=== PATIENT | female | born 1960 | race Caucasian/White ===

== ENCOUNTER 2019-05-18 00:28 | Day surgery (SDC) | payer OTHER, SELFPAY ==
[2019-05-12 13:39] VITALS: BMI 34.7
[2019-05-18] MEDS: LACTATED RINGERS 1,000 ML 150 ML IV CONT (07:01)
[2019-05-18 07:11] VITALS: BP 140/85; PULSE 93; RESP 18; TEMP 37.2; O2SAT 95; BMI 37.3
--- NOTE | 2019-05-18 07:33 | P.PNAN_ITS ---
Anes - Initial Pre Proc Eval Procedure: Operation Date: 05/18/19 08:00 Proposed Procedures p Screening Colonoscopy - Rito Sood MD Date/Time: 05/18/19 07:33 Surgeon: Rito Sood MD Pre Op Diagnosis: Neoplasm Screening Patient Data Age: 59 Gender: F Height: 5 ft 6 in Weight: 105 kg Last Vital Signs Temp 98.9 F 05/18/19 07:11 Pulse 93 05/18/19 07:11 Resp 18 05/18/19 07:11 BP 140/85 05/18/19 07:11 Pulse Ox 95 05/18/19 07:11 Allergies Allergy/AdvReac Type Severity Reaction Status Date / Time clarithromycin Allergy Unknown Nausea Verified 05/18/19 07:09 levofloxacin Allergy Unknown Nausea Verified 05/18/19 07:09 Home Medications Medication Instructions Recorded Confirmed Type valsartan-hydrochlorothiazide 1 tablet PO DAILY 05/12/19 05/18/19 History Patient hx anesthesia problems: none Family hx anesthesia problems: none [facility] Past Medical History Medical History (Updated 05/18/19 @ 07:27 by Lucien Duran MD) Hypertension Social History Social History Smoking status: Never smoker Alcohol intake: current Anes - Eval Final PreProcedure Day of Procedure 05/18/19 07:33 Patient weight: obese Heart: regular rate and rhythm Lungs: clear to auscultation Airway: Mallampati scale class II Neurological: alert and oriented Last oral intake: >/= 8 hours ASA classification: II Emergent: no Anesthetic plan: proceed Anesthesia type and monitoring: general GIVS and standard monitoring Informed Consent: The patient's anesthetic plan and its attendant risks and benefits were discussed with the patient/family/POA. Questions were solicited and answers provided to the satisfaction of the patient/family/POA.
--- NOTE | 2019-05-18 08:04 | P.HP_ITS ---
History of Present Illness History of Present Illness Consent: Risks, benefits, and alternatives have been discussed and questions answered. Patient agrees to proceed with procedure. Chief complaint: Neoplasm Screening Narrative: Nataly Cleary is a 59 year old female here for screening colonoscopy, never had one. Review of Systems Constitutional: Constitutional: Denies headache(s) and Denies weakness Eyes: Eyes: Denies blurry vision ENT: Reports Normal hearing present, Denies headache(s) and Denies neck pain Cardiovascular: Cardiovascular: Denies chest pain and Denies dyspnea Respiratory: Respiratory: Denies dyspnea Gastrointestinal: Gastrointestinal: Reports no additional gastrointestinal complaints Genitourinary: Genitourinary: Denies dysuria Musculoskeletal: Musculoskeletal: Denies neck pain Integumentary/Breasts: Skin/Breast: Denies dry skin Neurologic: Reports Normal hearing present, Denies headache(s) and Denies weak ness Psychiatric: Psychiatric: Denies anxiety Endocrine: Endocrine: Denies change in body appearance Hematologic/Lymphatic: Hematologic/Lymphatic: Denies easy bleeding Allergic/Immunologic: Allergic/Immunologic: Denies urticaria PMFSH Past Medical History Medical History (Updated 05/18/19 @ 08:05 by Rito Sood MD) Colon cancer screening Hypertension Social History Social History Smoking status: Never smoker Alcohol intake: current Meds Home Medications and Allergies Home Medications Medication Instructions Recorded Confirmed Type valsartan-hydrochlorothiazide 1 tablet PO DAILY 05/12/19 05/18/19 History Allergies Allergy/AdvReac Type Severity Reaction Status Date / Time clarithromycin Allergy Unknown Nausea Verified 05/18/19 07:09 levofloxacin Allergy Unknown Nausea Verified 05/18/19 07:09 Vital Signs Vital Signs - 24 hr 05/18/19 07:11 Temperature 98.9 F Pulse Rate 93 Respiratory Rate 18 Blood Pressure 140/85 Pulse Oximetry 95 Exam Const: General: comfortable and no acute distress HENMT: General nose exam: Normal nares present Eyes: General: appearance normal, both eyes and all related structures Neck: Neck: no JVD Resp: Auscultation: clear to auscultation bilaterally Cardio: Rate: regular rate Rhythm: regular rhythm GI: Inspection: non-distended GI Palp: Yes Soft to palpation Skin: General skin exam: normal color Neuro: General: gait normal Speech: normal speech Extrem: General: normal to inspection Psych: Mental Status: mental status grossly normal Assessment and Plan Assessment and plan (1) Colon cancer screening: Code(s): Z12.11 - Encounter for screening for malignant neoplasm of colon Status: Acute Assessment and Plan: will proceed with colonoscopy
[2019-05-18 08:33] VITALS: BP 112/65; PULSE 83; RESP 18; O2SAT 98
[2019-05-18 08:43] VITALS: BP 107/71; PULSE 89; RESP 20; O2SAT 99
[2019-05-18 08:54] VITALS: BP 120/84; PULSE 83; RESP 24; O2SAT 97
== END 2019-05-18 09:02 | disposition home or self-care (01) ==
PROVIDERS: PCP Family Medicine Sports Medicine; Visit Provider Internal Medicine Gastroenterology
PROC: 0DJD8ZZ Inspection of Lower Intestinal Tract, Via Natural or Artificial Opening Endoscopic (ICD-10-PCS; CPT 45378; principal; 2019-05-18 08:00)
DX: Z12.11 Encounter for screening for malignant neoplasm of colon (principal); I10 Essential (primary) hypertension; E66.9 Obesity, unspecified; Z68.37 Body mass index [BMI] 37.0-37.9, adult
CPT/HCPCS: 45378; J2704; J7120

== ENCOUNTER 2021-09-28 10:56 | Emergency (ER) | payer OTHER, SELFPAY ==
[2021-09-28] VITALS (18 sets, daily range): BP systolic 111–147; BP diastolic 67–89; PULSE 87–107; RESP 16–18; TEMP 36.6–36.8; O2SAT 94–97
--- NOTE | 2021-09-28 11:33 | ED.GENADULT ---
HPI - General Adult General Chief complaint: Upper Respiratory Infection Stated complaint: COVID + Time Seen by Provider: 09/28/21 11:01 History of Present Illness HPI narrative: 61-year-old female presented to the emergency department for evaluation of COVID symptoms. Patient states that on Friday she began developing sore throat. Patient states he did test positive for COVID yesterday. Patient is vaccinated against COVID. Patient has no prior history of a COVID infection. Patient's primary complaint is sinus pressure. Related Data Home Medications Medication Instructions Recorded Confirmed valsartan 160 1 tablet PO DAILY 05/12/19 05/18/19 mg-hydrochlorothiazide 12.5 mg tablet Allergies Allergy/AdvReac Type Severity Reaction Status Date / Time clarithromycin Allergy Unknown Nausea Verified 09/28/21 12:03 levofloxacin Allergy Unknown Nausea Verified 09/28/21 12:03 Review of Systems Review of Systems: CONSTITUTIONAL: Generalized fatigue EYES: Denies visual changes, redness, or discharge. ENT: Sinus pressure, see HPI CARDIOVASCULAR: Denies chest pain, palpitations, or edema. RESPIRATORY: Denies cough or dyspnea. GASTROINTESTINAL: Denies abdominal pain, nausea, vomiting, or diarrhea. GENITOURINARY: Denies dysuria or hematuria. SKIN: Denies rash or itching. MUSCULOSKELETAL: Denies back pain, joint pain, or myalgia. NEUROLOGIC: Denies headache, numbness, or weakness. [facility] Past Medical History Medical History (Updated 09/28/21 @ 18:23 by Jerry Duggan MD) Colon cancer screening Hypertension Social History Social History Smoking status: Never smoker Alcohol intake: current Exam Narrative: APPEARANCE: Well appearing, no pain, no distress, well-nourished. HEAD: normocephalic, atraumatic. Maxillary sinus tenderness to palpation EYES: PERRLA/EOMI, conjunctivae clear. NOSE: Normal no drainage EARS:TMS clear with good light reflex. THROAT: Pharynx clear, no exudate. NECK: Supple. No adenopathy, no masses. RESPIRATORY: Airway patent, respirations nonlabored. Clear to auscultation bilaterally, no rales, rhonchi, wheezing. CARDIOVASCULAR: Regular rate and rhythm without murmurs rubs or gallops. ABDOMINAL: Soft, nontender, nondistended, normal bowel sounds MUSCULOSKELETAL: Moves all extremities. Strength/ROM intact, No edema, No calf tenderness. NEURO: Alert. Cranial nerves II through XII intact. Grossly intact SKIN: Warm, dry. Normal Color Course Course Emergency Course: Patient's heart rate was improved with rehydration. Patient's vital signs were within normal limits. Vital Signs Vital signs: Vital Signs Temperature 98.3 F 09/28/21 10:57 Pulse Rate 107 H 09/28/21 10:57 Respiratory Rate 16 09/28/21 10:57 Blood Pressure 146/68 H 09/28/21 10:57 Pulse Oximetry 97 09/28/21 10:57 Oxygen Delivery Room Air 09/28/21 10:57 Temperature 98 F 09/28/21 13:15 Pulse Rate 87 09/28/21 13:15 Respiratory Rate 18 09/28/21 13:15 Blood Pressure 116/89 09/28/21 13:15 Pulse Oximetry 97 09/28/21 13:15 Oxygen Delivery Room Air 09/28/21 12:00 Medical Decision Making Vital Signs Vital Signs: Vital Signs Temperature 98.3 F 09/28/21 10:57 Pulse Rate 107 H 09/28/21 10:57 Respiratory Rate 16 09/28/21 10:57 Blood Pressure 146/68 H 09/28/21 10:57 Pulse Oximetry 97 09/28/21 10:57 Oxygen Delivery Room Air 09/28/21 10:57 Temperature 98 F 09/28/21 13:15 Pulse Rate 87 09/28/21 13:15 Respiratory Rate 18 09/28/21 13:15 Blood Pressure 116/89 09/28/21 13:15 Pulse Oximetry 97 09/28/21 13:15 Oxygen Delivery Room Air 09/28/21 12:00 Lab Data Result diagrams: 09/28/21 11:46 09/28/21 11:46 Labs: Lab Results 09/28/21 09/28/21 Range/Units 11:46 11:46 WBC 7.1 (4.5-10.0) K/mm3 RBC 4.39 (4.2-5.4) M/mm3 Hgb 13.1 (12.0-15.0) g/dL Hct 38.3 (37.0-47.0) % MCV 87.2 (80-100) fl
[2021-09-28 11:50] LABS: Basophils Percent Auto 0.3 % (0.2-1.2); Eosinophils Absolute Auto 0.1 K/mm3 (0-0.3); Eosinophils Percent Auto 1.4 % (0-4.4); Hematocrit 38.3 % (37.0-47.0); Hemoglobin 13.1 g/dL (12.0-15.0); Immature Granulocyte Absolute 0.02 K/mm3 (0.00-0.031); Immature Granulocyte Percent A 0.3 % (0-0.5); Lymphocytes Absolute Auto 0.87 K/mm3 (0.9-3.2); Lymphocytes Percent Auto 12.3 % (18.3-44.2); Mean Corpuscular HGB Conc 34.2 g/dl (32-36); Mean Corpuscular Hemoglobin 29.8 pg (26-34); Mean Corpuscular Volume 87.2 fl (80-100); Mean Platelet Volume 10.7 fl (7.4-10.4); Monocytes Absolute Auto 0.6 K/mm3 (0.1-0.6); Monocytes Percent Auto 8.6 % (2.6-8.5); Neutrophils Absolute Auto 5.5 K/mm3 (1.3-6.7); Neutrophils Percent Auto 77.1 % (45.5-73.1); Platelet Count Result 198 k/mm3 (150-375); Red Blood Count 4.39 M/mm3 (4.2-5.4); Red Cell Distribution Width 12.7 % (11.5-14.5); White Blood Count 7.1 K/mm3 (4.5-10.0)
[2021-09-28 12:01] LABS: Alanine Aminotransferase 16 U/L (6-35); Albumin Level 4.1 g/dL (3.5-5.1); Alkaline Phosphatase 73 U/L (38-126); Anion Gap 3 mmol/L (8-16); Aspartate Amino Transferase 20 U/L (14-36); Bilirubin,Total 0.7 mg/dL (0.2-1.3); Blood Urea Nitrogen 14 mg/dL (7-17); Calcium 8.6 mg/dL (8.4-10.2); Carbon Dioxide 29 mmol/L (22-30); Chloride 104 mmol/L (98-107); Estimated CRCL calculation 60 ml/min; Estimated Glomerular Filt Rate 57; Glucose 131 mg/dL (65-110); Potassium 3.8 mmol/L (3.4-5.0); Sodium 136 mmol/L (137-145)
[2021-09-28] MEDS: SODIUM CHLORIDE 0.9% IV 1,000 ML 999 ML IV CONT (12:02)
[2021-09-28] MEDS: KETOROLAC 15 MG/ML VIAL (*BKC) IV PUSH (12:03)
== END 2021-09-28 13:15 | disposition home or self-care (01) ==
PROVIDERS: Emergency Provider Emergency Medicine; PCP Family Medicine Sports Medicine
DX: U07.1 COVID-19 (principal); J32.9 Chronic sinusitis, unspecified; I10 Essential (primary) hypertension
CPT/HCPCS: 36415; 80053; 85025; 96361; 96374; 99284; J1885; J7030

== ENCOUNTER 2023-05-26 08:46 | Outpatient (CLI) | payer BC, SELFPAY ==
--- NOTE | ~2023-05-26 | DEXA_ITS ---
Bone Density Report Name: URIAH ACEVEDO Age: 63 Sex: Female Ethnicity: White Date of : 1960 Indication: postmenopausal; screening for osteoporosis; Referring Provider: ROBB NAJERA Study: Bone densitometry was performed. Exam Date: May 26, 2023 Accession number: [id number] Bone Density: Region BMD T-score Z-score Classification AP Spine (L1-L4) 1.076 0.3 1.8 Normal Femoral Neck (Left) 0.876 0.2 1.6 Normal Total Hip (Left) 1.049 0.9 1.9 Normal Femoral Neck (Right) 0.871 0.2 1.5 Normal Total Hip (Right) 1.027 0.7 1.7 Normal Total Hip Mean 1.038 0.8 1.8 Normal World Health Organization criteria for BMD impression classify patients as: Normal (T-score at or above -1.0), Osteopenia (T-score between -1.0 and -2.5), or Osteoporosis (T-score at or below -2.5). 10-year Fracture Risk: FRAX not reported because: All T-scores for Spine Total, Hip Total, Femoral Neck at or above -1.0 Previous Exams: Region Exam Age BMD T-score BMD Change BMD Change Date g/cm2 vs Baseline vs Previous AP Spine(L1-L4) 05/26/2023 63 1.076 0.3 -0.092 -0.092 01/19/2007 46 1.167 1.1 Total Hip(Left) 05/26/2023 63 1.049 0.9 -0.009 -0.009 01/19/2007 46 1.058 0.9 Total Hip(Right) 05/26/2023 63 1.027 0.7 -0.049 -0.049 01/19/2007 46 1.076 1.1 *Denotes significance at 95% confidence level, LSC for AP Spine = 0.022 g/cm2, LSC for Total Hip = 0.027 g/cm2 Clinical Information Provided by Patient: Has used the following medications: Vitamin D Patient maximum height was 66.0 Menopause Age: 52 Drinks caffeinated beverages Onset of menses at age 16 Number of children 3 Impression: The patient has normal bone mass. No significant bone loss was observed. Discussion: BONE DENSITY IS ABOVE THE MINIMUM DESIRABLE LEVEL AT ALL SKELETAL SITES TESTED. This patient?s bone mineral density is above the minimum desirable level (T-score -1.0 or better) at all sites measured. The patient should follow a healthful lifestyle (good nutrition with adequate calcium and vitamin D, and appropriate weight-bearing exercise). Follow-Up: Consider repeating this study in 5 years or sooner if there is some new clinical indication. Reported by: SUNIL on 05/26/2023 9:08:00 AM. Reviewed, dictated and finalized at location [facility]
== END 2023-05-26 08:47 ==
PROVIDERS: PCP Family Medicine; Visit Provider Obstetrics & Gynecology Gynecology
DX: Z13.820 Encounter for screening for osteoporosis (principal); Z78.0 Asymptomatic menopausal state
CPT/HCPCS: 77080

== ENCOUNTER 2024-07-15 15:01 | Outpatient (CLI) | payer BC, SELFPAY ==
--- NOTE | 2024-07-15 | ECG_ITS ---
Test Date: 2024-07-15 15:51:04 Measurements Intervals [place] Rate: 86 P: 58 TX: 163 QRS: 14 QRSD: 98 T: 22 QT: 385 QTc: 461 Interpretive Statements SINUS RHYTHM No previous ECG available for comparison Electronically Signed On 07-16-2024 18:59:51 CDT by Corazon Lopez
--- OUTSIDE RECORDS SUMMARY | 2024-07-15 15:33 | XMS_ITS | Clinical Summary ---
Author Organization [facility] [address] [place] [id number] Care Team Providers Care Eyeglass Maker Name Role Phone Sky Hummel MD Primary Care Provider [phone] Allergies No known active allergies Medications ezetimibe (ZETIA) 10 mg tablet 07/02/2024 Active meclizine (ANTIVERT) 25 mg tablet TAKE 1 TABLET BY MOUTH 4 TIMES A DAY NEEDED FOR 10 DAYS 03/31/2024 Active valsartan-hydroC HLOROthiazide (DIOVAN-HCT) 160-12.5 mg per tablet 07/02/2024 Active Active Problems No known active problems Encounters Date Type Department Care Team Description 07/03/2024 6:00 PM CDT Office Visit [facility] Medical Group [facility] Care at [address] [id number] Maribel Woodard NP Impacted cerumen of right ear (Primary Dx); Vertigo from Last 3 Months Social History Tobacco Use Types Packs/Day Years Used Date Smoking Tobacco: Never Assessed Comments No Sex and Gender Information Value Date Recorded Sex Assigned at Not on file 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 Gender Identity Not on file Sexual Orientation Not on file Obstetrics History Para Term AB IAB SAB Ectopic Multiple Livin g Live Births 3 Date Outcome GA Total Labor Labor/2nd/3rd Weight Sex Type Anes PTL Billie A1 A5 Name Clin Last Filed Vital Signs Vital Sign Reading Time Taken Comments Blood Pressure 138/82 07/03/2024 5:57 PM CDT Pulse 85 07/03/2024 5:57 PM CDT Temperature 36.9 C (98.4 F) 07/03/2024 5:57 PM CDT Respiratory Rate 20 07/03/2024 5:57 PM CDT Oxygen Saturation 98% 07/03/2024 5:57 PM CDT Inhaled Oxygen Concentration - - Weight 104.8 kg (231 lb) 07/03/2024 5:57 PM CDT Height - - Body Mass Index - - Plan of Treatment Health Maintenance Due Date Last Done Comments Cervical Cancer Screening 1960 Colon Cancer Screening-Colonoscopy 1960 Depression Screening 1960 Hepatitis C Screening 1960 DTaP/Tdap/Td Vaccine (1 - Tdap) 1973 Regular Well Visit/Exam 18-64 1980 Zoster Vaccine (1 of 2) 2012 Covid-19 Vaccine ( - season) 2023 01/19/2021, 05/16/2020, 04/18/2020 Breast Cancer Screening-Mammogram 09/07/2024 09/08/2023, 07/01/2022, 05/22/2021, Additional history exists Influenza Vaccine (Season Ended) 2024 12/22/2020, 12/25/2019, 01/01/2019, Additional history exists Hepatitis B Screening Completed 03/24/2017 , 10/01/2016, 08/30/2016 Pneumococcal vaccine <65 Aged Out No longer eligible based on patient's age to complete this topic Procedures Procedure Name Priority Date/Time Associated Diagnosis Comments MA REMOVAL IMPACTED CERUMEN IRRIGATION/LVG UNILAT Routine 07/03/2024 6:00 PM CDT Impacted cerumen of right ear MA REMOVAL IMPACTED CERUMEN INSTRUMENTATION UNILAT Routine 07/03/2024 6:00 PM CDT Impacted cerumen of right ear SCREENING MAMMOGRAM BILATERAL W JOHNSON Schedule Routine, Read Routine (OP Routine) 09/08/2023 4:25 PM CDT Screening mammogram, encounter for from Last 3 Months or Most Recently Relevant to Health Maintenance Results * MA REMOVAL IMPACTED CERUMEN INSTRUMENTATION UNILAT, MA REMOVAL IMPACTED CERUMEN IRRIGATION/LVG UNILAT (07/03/2024 6:00 PM CDT) Narrative Maribel Woodard NP - 07/03/2024 6:00 PM CDT Maribel Woodard NP 07/03/2024 6:18 PM Ear Cerumen Removal Performed by: Maribel Woodard NP Authorized by: Maribel Woodard NP Consent Given by: Patient Verbal consent obtained: Yes Location: R ear R ear cerumen impacted?: Yes R ear method of removal: Irrigation and instrumentation R ear instrumentation: Curette R ear magnification: Otoscope Inspection: TM intact Hearing quality: Improved Patient tolerance: Patient tolerated the procedure well with no immediate complications Eardrum and canal on right side are within normal limits after cerumen removed Maribel Woodard NP IN CLINIC/BEDSIDE ORDERABLES F inal Result * Screening Mammogram Bilateral W Johnson (09/08/2023 4:25 PM CDT) Anatomical Region Laterality Modality Breast Bilateral Mammography Impressions 09/08/2023 5:53 PM CDT BI-RADS ATLAS category (overall): 2 - Benign There is no mammographic evidence of malignancy. A 1 year screening mammogram is recommended. The patient has been or will be contacted. We recommend annual screening mammography for women at average risk of breast cancer beginning at age 40, based on guidelines of the [place] (ACR Practice Parameter for the Performance of Screening and Diagnostic Mammography) and [place]. For women with and elevated risk of breast cancer, please refer to the ACR Practice Parameter for specific screening recommendations. The patient will be entered into a reminder system with a target due date of 1 year for her next screening exam. Narrative 09/08/2023 5:53 PM CDT Screening Mammogram Bilateral W Johnson: 09/08/23 The study was acquired using full field digital technology and interpreted from soft copy. 2D digital mammographic views, as well as 3D digital tomosynthesis were performed in the CC and MLO projections. CLINICAL: Screening mammogram, encounter for. No relevant medical history has been documented for this patient. No known family history of breast cancer. COMPARISONS: 07/01/2022 Screening Mammogram Bilateral W Johnson 05/22/2021 Screening Mammogram Bilateral W Johnson 02/23/2019 Screening Mammogram Bilateral W Johnson 01/29/2018 Screening Mammogram 2D Bilateral BREAST TISSUE: The breasts are heterogeneously dense, which may obscure small masses. FINDINGS: There are stable benign scattered calcifications in both breasts. There is no new suspicious finding in either breast on mammogram. us Self Screening Mammogram IMG MAMMO PROCEDURES Fi nal Result from Last 3 Months or Most Recently Relevant to Health Maintenance Insurance [employer] ID Care Teams Eyeglass Maker Relationship Specialty Start Date End Date Sky Hummel MD [address] [place] [id number] PCP - General Family Medicine 08/29/23
--- OUTSIDE RECORDS SUMMARY | 2024-07-15 15:33 | XMS_ITS | Clinical Summary ---
Author Organization [facility] [employer] Address [address] [place] [address] Care Team Providers Care Phys Therapist Name Role Phone Cristhian Griffith MD Primary Care Provider [phone] Source Comments [facility] [facility],non-owned Affiliates and Associated Physician Practices is amultiple site organization consisting of ambulatory clinics and hospital sitesin [place], [place], [place] and [place]. This disclosure is being madepursuant to the Care Everywhere program and may not contain all information available regarding this patient. Last updated 17.[facility] [facility] Allergies Active Allergy Reactions Criticality Noted Date Comments Levofloxacin 08/09/2016 Medications * Be aware that medications may not be up to date on this document. Alwaysverify current medications with the patient. No known medications Social History Tobacco Use Types Packs/Day Years Used Date Smoking Tobacco: Never Comments Unknown Sex and Gender Information Value Date Recorded Sex Assigned at Not on file Legal Sex Female 9:30 AM CDT Gender Identity Not on file Sexual Orientation Not on file Last Filed Vital Signs Vital Sign Reading Time Taken Comments Blood Pressure 110/64 03/22/2020 4:08 PM DIGITAL ARCHIVIST Pulse 92 08/09/2016 10:20 AM CDT Temperature 36.7 C (98 F) 08/09/2016 10:20 AM CDT Respiratory Rate 16 08/09/2016 10:20 AM CDT Oxygen Saturation 97% 08/09/2016 10:20 AM CDT Inhaled Oxygen Concentration - - Weight 85.3 kg (188 lb) 08/09/2016 10:20 AM CDT Height 167.6 cm (5' 6 ) 08/09/2016 10:20 AM CDT Body Mass Index 30.34 08/09/2016 10:20 AM CDT Plan of Treatment Health Maintenance Due Date Last Done Comments COLOGUARD (AGES 45-75) - COL ON CA SCREENING 1960 COLON MONITORING 1962 COLONOSCOPY - COLON CA SCREENING 1962 CT COLONOGRAPHY - COLON CA SCREENING 1960 Colorectal Cancer Screening 1960 FIT - COLON CA SCREENING 1962 FLEX SIG - COLON CA SCREENING 1962 LIPID TESTING 1962 HIV SCREENING 1977 HEPATITIS C SCREENING 03/22/1980 DTAP/TDAP/TD VACCINES (1 - Tdap) 1981 PNEUMOCOCCAL VACCINE 50+ (1 of 1 - PCV) 2012 ZOSTER VACCINE (1 of 2) 2012 MAMMOGRAM 02/23/2021 02/23/2019 COVID-19 VACCINE ( - 2023-2 5 season) 2023 DEPRESSION SCREENING 03/17/2024 INFLUENZA VACCINE (Season Ended) 2024 Respiratory Syncytial Virus (RSV) Vaccine Pt: or over 60 yrs (1 - 1-dose 75+ series) 2037 HEPATITIS B VACCINE Aged Out No longe r eligible based on patient's age to complete this topic HIB VACCINE Aged Out No longer eligi ble based on patient's age to complete this topic HPV VACCINE Aged Out No longer eligi ble based on patient's age to complete this topic MENINGOCOCCAL (Group B) VACC INE SHARED DECISION-MAKING Aged Out No longer eligibl e based on patient's age to complete this topic MENINGOCOCCAL GROUPS A/C/Y/W VACCINE Aged Out No longer eligible b ased on patient's age to complete this topic Insurance [employer] Care Teams Phys Therapist Relationship Specialty Start Date End Date Cristhian Griffith MD [address] [facility] [place] [address] PCP - General Family Medicine 08/09/16
--- OUTSIDE RECORDS SUMMARY | 2024-07-15 15:33 | XMS_ITS | Referral Summary ---
Author Organization [facility] [address] [place] [id number] Care Team Providers Care Principal Quality Engineer Name Role Phone Sky Hummel MD Primary Care Provider [phone] Encounters Date Type Department Care Team Description 07/03/2024 6:00 PM CDT Office Visit [facility] Care at [address] [phone] Maribel Woodard NP Impacted cerumen of right ear (Primary Dx); Vertigo from Last 3 Months Allergies No known active allergies Medications ezetimibe (ZETIA) 10 mg tablet 07/02/2024 Active meclizine (ANTIVERT) 25 mg tablet TAKE 1 TABLET BY MOUTH 4 TIMES A DAY NEEDED FOR 10 DAYS 03/31/2024 Active valsartan-hydroC HLOROthiazide (DIOVAN-HCT) 160-12.5 mg per tablet 07/02/2024 Active Active Problems No known active problems Social History Tobacco Use Types Packs/Day Years Used Date Smoking Tobacco: Never Assessed Comments No Sex and Gender Information Value Date Recorded Sex Assigned at Not on file 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 Gender Identity Not on file Sexual Orientation [...] Mass Index - - Plan of Treatment Not on file Procedures Procedure Name Priority Date/Time Associated Diagnosis Comments [place] REMOVAL IMPACTED CERUMEN IRRIGATION/LVG UNILAT Routine 07/03/2024 6:00 PM CDT Impacted cerumen of right ear SD REMOVAL IMPACTED CERUMEN INSTRUMENTATION UNILAT Routine 07/03/2024 6:00 PM CDT Impacted cerumen of right ear SCREENING MAMMOGRAM BILATERAL W JOHNSON Schedule Routine, Read Routine (OP Routine) 09/08/2023 4:25 PM CDT Screening mammogram, encounter for from Last 3 Months or Most Recently Relevant to Health Maintenance Results * SD REMOVAL IMPACTED CERUMEN INSTRUMENTATION UNILAT, SD REMOVAL IMPACTED CERUMEN IRRIGATION/LVG UNILAT (07/03/2024 6:00 [...] are within normal limits after cerumen removed us Maribel Woodard NP IN CLINIC/BEDSIDE ORDERABLES F [...] age 40, based on guidelines of the [place] [employer] (ACR Practice Parameter for the Performance of Screening and Diagnostic Mammography) and [place] [employer]. For women [...] Most Recently Relevant to Health Maintenance Insurance [facility] Care Teams Principal Quality Engineer Relationship Specialty Start Date End Date Sky Hummel MD [address] [place] [id number] PCP - General Family Medicine 08/29/23
[2024-07-15 15:34] LABS: Hematocrit 40.6 % (37.0-47.0); Hemoglobin 13.6 g/dL (12.0-15.0); Mean Corpuscular HGB Conc 33.5 g/dl (32-36); Mean Corpuscular Hemoglobin 29.6 pg (26-34); Mean Corpuscular Volume 88.5 fl (80-100); Mean Platelet Volume 10.2 fl (7.4-10.4); Platelet Count Result 248 k/mm3 (150-375); Red Blood Count 4.59 M/mm3 (4.2-5.4); Red Cell Distribution Width 12.1 % (11.5-14.5); White Blood Count 7.7 K/mm3 (4.5-10.0)
[2024-07-15 15:57] LABS: Alanine Aminotransferase 20 U/L (6-35); Albumin Level 4.6 g/dL (3.5-5.1); Alkaline Phosphatase 76 U/L (38-126); Anion Gap 8 mmol/L (4-12); Aspartate Amino Transferase 27 U/L (14-36); Bilirubin,Total 0.9 mg/dL (0.2-1.3); Blood Urea Nitrogen 18 mg/dL (7-17); Calcium 9.5 mg/dL (8.4-10.2); Carbon Dioxide 28 mmol/L (22-30); Chloride 100 mmol/L (98-107); Estimated Glomerular Filt Rate 55; Glucose 95 mg/dL (65-110); Potassium 3.8 mmol/L (3.4-5.0); Sodium 136 mmol/L (137-145)
== END 2024-07-15 15:02 | disposition home or self-care (01) ==
PROVIDERS: PCP Family Medicine; Visit Provider Orthopaedic Surgery
DX: Z01.818 Encounter for other preprocedural examination (principal); S83.242A Other tear of medial meniscus, current injury, left knee, initial encounter; X58.XXXA Exposure to other specified factors, initial encounter
CPT/HCPCS: 36415; 80053; 85027; 93005